=== PATIENT | male | born 1980 | race Caucasian/White ===

== ENCOUNTER 2018-03-31 07:31 | Emergency (ER) | payer BC, OTHER ==
[2018-03-31 07:55] VITALS: BP 126/83
--- NOTE | 2018-03-31 08:40 | UC ---
Arslan Santo Angela, scribed for Svetlana Olsen MD on 03/31/18 at 0833 . Abdominal Pain Male HPI - HPI Summary HPI Summary: This pt is a 37 y/o male presenting to [facility] c/o localized upper abd pain since last night. Pt additionally notes body aches, mostly on his abd, vomiting, intermittent fevers x4 days. The last time he had an episode of emesis was at 03 :00 today, notes not as violent as previous days. Emesis is described as clear and fluids he has been drinking. His maximum fever was 3 days ago and it was 101.8 F. Pt had some diarrhea 3 days ago, none since then. He describes his abd pain as a band around his abd and feeling bloated. Denies constipation. Yesterday he ate a sandwich and his daughter had the same food. His daughter is not sick. Denies sick contacts. He took Tylenol yesterday afternoon without relief. Pt states drinking alcohol once a day, 3-4 beers a day. He has not drank any alcohol since 5 days ago. Pt denies having any withdrawal symptoms when not drinking. Denies drug use. Allergies to cefaclor. Patients medication reviewed this visit. - History of Current Complaint Chief Complaint: UCAbdominalPain Stated Complaint: ABD PAIN Time Seen by Provider: 03/31/18 08:07 Hx Obtained From: Patient Onset/Duration: Lasting Days, Still Present Timing: Constant Severity Currently: Moderate Pain Intensity: 8 Pain Scale Used: 0-10 Numeric Location: Diffuse Radiates: No Character: Other - bloating Aggravating Factor(s): Nothing Alleviating Factor(s): Nothing Associated Signs And Symptoms: Positive: Fever, Nausea, Vomiting, Diarrhea. Negative: Constipation - Allergies/Home Medications Allergies/Adverse Reactions: Allergies Allergy/AdvReac Type Severity Reaction Status Date / Time cefaclor [From [facility]] Allergy Rash Verified 03/31/18 07:51 PMH/Surg Hx/FS Hx/Imm Hx Previously Healthy: Yes Other Cardiovascular History: DENIES: HTN Other Respiratory History: sleep apnea - Surgical History Surgical History: Yes Surgery Procedure, Year, and Place: hernia repair. sleep apnea - Family History Known Family History: Positive: Hypertension Family History: Mother: appendicitis - Social History Occupation: Employed Full-time Lives: With Family Alcohol Use: Daily Alcohol Amount: 3-4 beers Substance Use Type: None Smoking Status (MU): Never Smoked Tobacco Review of Systems Constitutional: Fever Skin: Negative Eyes: Negative ENT: Negative Respiratory: Negative Cardiovascular: Negative Gastrointestinal: Abdominal Pain, Vomiting, Diarrhea, Nausea, Other - NEG: constipation Genitourinary: Negative Motor: Negative Neurovascular: Negative Musculoskeletal: Negative Neurological: Negative Psychological: Negative All Other Systems Reviewed And Are Negative: Yes Physical Exam Triage Information Reviewed: Yes Appearance: Well-Nourished, Pain Distress Vital Signs: Initial Vital Signs Temp 98.1 F 03/31/18 07:52 Pulse 85 03/31/18 07:52 Resp 16 03/31/18 07:52 BP 126/83 03/31/18 07:52 Pulse Ox 99 03/31/18 07:52 Vital Signs Reviewed: Yes Eye Exam: Normal Eyes: Positive: Conjunctiva Clear ENT Exam: Normal ENT: Positive: Normal ENT inspection, Hearing grossly normal, Pharynx normal, TMs normal Dental Exam: Normal Neck exam: Normal Neck: Positive: Supple, Nontender, No Lymphadenopathy Respiratory Exam: Normal Respiratory: Positive: Chest non-tender, Lungs clear, Normal breath sounds, No respiratory distress, No accessory muscle use Cardiovascular Exam: Normal Cardiovascular: Positive: RRR, No Murmur, Pulses Normal Abdomen Description: Negative: Nontender - diffusely tender, epigastric, LLQ decreased BS soft + BS, CVA Tenderness (R), CVA Tenderness (L) Musculoskeletal Exam: Normal Musculoskeletal: Positive: Strength Intact Neurological Exam: Normal Neurological: Positive: Alert Psychological Exam: Normal Psychological: Positive: Normal Response To Family Skin Exam: Normal Abd Pain Male Course/Dx - Course Course Of Treatment: Pt with progressive abd pain, nausea and intermittent fever x 5 days. pt with diffuse abd pain,d ecrease BS. recommend pt to ED for further eval. pt with h/o ETOH - consider pancreatitis, diverticulitie, colitis , gastritis in differential. pt in agreement with plan. to drive. discharge with referral to ED. RN to call report - Differential Dx/Clinical Impression Provider Diagnoses: acute abdominal pain Discharge - Sign-Out/Discharge Documenting (check all that apply): Discharge/Admit/Transfer - Discharge - Discharge Plan Condition: Stable Disposition: HOME Referrals: No Primary Care Phys,NOPCP [Primary Care Provider] - Additional Instructions: The doctor that evaluated you today recommends you go directly to the emergency department for further evaluation. This may include lab testing, radiology imaging and IV treatment. This will be at the discretion of the provider that evaluates you. If your symptoms change or you have any concerns enroute, it is recommended you sample puller and call 911 for assistance Go directly to the emergency department at [facility] - they are expecting you - Billing Disposition and Condition Condition: STABLE Disposition: HOME The documentation as recorded by the Arslan abdullahi Angela accurately reflects the service I personally performed and the decisions made by Raúl mackenzie Laura, MD.
== END 2018-03-31 08:45 | disposition home or self-care (01) ==
LOC: UCEAST 07:31
DX: R10.10 Upper abdominal pain, unspecified (principal); M79.1 Myalgia; R11.2 Nausea with vomiting, unspecified; R50.9 Fever, unspecified; R19.7 Diarrhea, unspecified; Z88.1 Allergy status to other antibiotic agents
CPT/HCPCS: 99202; G0463

== ENCOUNTER 2018-03-31 09:05 | Emergency (ER) | payer BC ==
[2018-03-31] MEDS ORDERED: Ondansetron INJ* 2 MG/ML VIAL IV ONE (09:35)
[2018-03-31 09:58] LABS: ABS Basophils 0 10^3/ul (0-0.2); ABS Eosinophils 0.1 10^3/ul (0-0.6); ABS Monocytes 0.7 10^3/ul (0-0.8); ABS Neutrophils 5.1 10^3/ul (1.5-7.7); ABS Nucleated RBC 0 10^3/ul; Eosinophil % 0.9 % (0-6); Hematocrit 45 % (42-52); Hemoglobin 15.7 g/dl (14.0-18.0); Mean Corpuscular HGB Conc 35 g/dl (31-36); Mean Corpuscular Hemoglobin 31 pg (27-31); Mean Corpuscular Volume 88 fL (80-94); Mean Platelet Volume 7.6 um3 (7.4-10.4); Nucleated Red Blood Cells % 0.6; Platelet Count 263 10^3/ul (150-450); Red Blood Count 5.11 10^6/ul (4.0-5.4); Red Cell Distribution Width 13 % (10.5-15); White Blood Count 6.9 10^3/ul (3.5-10.8)
[2018-03-31 10:03] LABS: INR 0.97 (0.77-1.02)
[2018-03-31 10:10] LABS: EGFR Non-African American 83.6 (>60)
[2018-03-31] MEDS ORDERED: Iohexol 300* (CONTRAST) 10 ML SDV IV ONE (10:13)
--- NOTE | 2018-03-31 10:43 | ED ---
Abdominal Pain/Male - HPI Summary HPI Summary: This patient is an otherwise healthy 37-year-old male presenting to the ED from [facility] with a chief complaint of mid abdominal pain which has been present mostly since last evening. Endorses vomiting, but denies nausea. He has also had intermittent fevers and several days with the highest reported at 101.8. Denies any nausea, but states will vomit out of pain. Pain improves after vomiting. Last emesis at 3 AM today. Since 5 days ago he endorses pain to his right and left upper quadrants which she describes as a band around his abdomen. Since last evening the pain has shifted to the mid abdomen and he states now it is more diffuse. His is at bedside and states he has been more lethargic recently and having little energy. Endorses sweats and chills. He endorses early satiety and has not been eating or drinking regularly. Endorses a bloated feeling. Alcohol use daily, but has not drink any alcohol since symptoms began 5 days ago. Denies smoking or drug use. Denies any known sick contacts. He has never had anything like this before. Symptoms are not aggravated or alleviated with food or positioning. Denies any BRBPR. - History of Current Complaint Chief Complaint: EDAbdPain Stated Complaint: ABD PAIN Time Seen by Provider: 03/31/18 09:15 Hx Obtained From: Patient Onset/Duration: Sudden Onset Timing: Constant Severity Initially: Moderate Severity Currently: Moderate Pain Intensity: 8 Pain Scale Used: 0-10 Numeric Location: Diffuse Radiates: No Character: Sharp, Cramping Aggravating Factor(s): Nothing Alleviating Factor(s): Nothing Associated Signs And Symptoms: Positive: Diaphoresis, Fever, Decreased Appetite , Vomiting, Diarrhea - 1 episode. Negative: Cough, Chest Pain, Dizzy, Back Pain , Constipation, Blood in Stool, Urinary Symptoms, Nausea, Penile Discharge - Risk Factors Testicular Torsion: Negative Cardiac Risk Factors: Negative - Allergies/Home Medications Allergies/Adverse Reactions: Allergies Allergy/AdvReac Type Severity Reaction Status Date / Time cefaclor [From [facility]] Allergy Rash Verified 03/31/18 07:51 Home Medications: Home Medications Multivitamins/Minerals TAB* [Theragran/minerals TAB*] 1 tab PO DAILY 03/31/18 [ History Confirmed 03/31/18] PMH/Surg Hx/FS Hx/Imm Hx Previously Healthy: Yes Endocrine/Hematology History: Denies: Hx Diabetes, Hx Thyroid Disease Cardiovascular History: Denies: Hx Hypertension Respiratory History: Denies: Hx Asthma, Hx Chronic Obstructive Pulmonary Disease (COPD) GI History: Denies: Hx Ulcer - Surgical History Surgery Procedure, Year, and Place: hernia repair. sleep apnea - Immunization History Hx Pertussis Vaccination: No Immunizations Up to Date: Unable to Obtain/Confirm Infectious Disease History: No Infectious Disease History: Denies: Hx Hepatitis, Hx Human Immunodeficiency Virus (HIV), Traveled Outside the [place] in Last 30 Days - Family History Family History: Mother: appendicitis - Social History Occupation: Unemployed Lives: With Family Alcohol Use: Daily Alcohol Amount: 3-4 beers Hx Substance Use: No Substance Use Type: Reports: None Hx Tobacco Use: No Smoking Status (MU): Never Smoked Tobacco Review of Systems Positive: Fever, Chills, Fatigue, Skin Diaphoresis Negative: Photophobia, Blurred Vision Negative: Dental Pain, Sore Throat, Ear Ache, Nasal Discharge Negative: Palpitations, Chest Pain Negative: Shortness Of Breath, Cough Positive: Abdominal Pain, Vomiting, Diarrhea Genitourinary: Negative Positive: no symptoms reported, see HPI. Negative: burning, dysuria, discharge , frequency, flank pain, urgency Positive: Arthralgia - bilateral lower extremities Skin: Negative Neurological: Negative All Other Systems Reviewed And Are Negative: Yes Physical Exam Triage Information Reviewed: Yes Vital Signs On Initial Exam: Initial Vitals Temp Pulse Resp BP Pulse Ox 97.3 F 79 16 154/71 100 03/31/18 09:08 03/31/18 09:08 03/31/18 09:08 03/31/18 09:08 03/31/18 09:08 Appearance: Positive: Well-Appearing, Well-Nourished Skin: Positive: Warm, Skin Color Reflects Adequate Perfusion Head/Face: Positive: Normal Head/Face Inspection Eyes: Positive: EOMI, ANN-MARIE, Conjunctiva Clear Neck: Positive: Supple, No Lymphadenopathy Respiratory/Lung Sounds: Positive: Clear to Auscultation, Breath Sounds Present Cardiovascular: Positive: RRR, Pulses are Symmetrical in both Upper and Lower Extremities Abdomen Description: Positive: Other: - tenderness to all quadrants on light palpation; hypoactive bowel sounds Musculoskeletal: Positive: Normal, Strength/ROM Intact Neurological: Positive: Sensory/Motor Intact, Speech Normal Psychiatric: Positive: Affect/Mood Appropriate AVPU Assessment: Alert Diagnostics - Vital Signs Vital Signs Temp Pulse Resp BP Pulse Ox 03/31/18 09:08 97.3 F 79 16 154/71 100 - Laboratory Lab Results: Lab Results 03/31/18 03/31/18 03/31/18 Range/Units 09:44 09:44 09:44 WBC 6.9 (3.5-10.8) 10^3/ul RBC 5.11 (4.0-5.4) 10^6/ul Hgb 15.7 (14.0-18.0) g/dl Hct 45 (42-52) % MCV 88 (80-94) fL MCH 31 (27-31) pg MCHC 35 (31-36) g/dl RDW 13 (10.5-15) % Plt Count 263 (150-450) 10^3/ul MPV 7.6 (7.4-10.4) um3 Neut % (Auto) 73.1 (38-83) % Lymph % (Auto) 15.0 L (25-47) % Lagrange % (Auto) 10.5 H (0-7) % Eos % (Auto) 0.9 (0-6) % Baso % (Auto) 0.5 (0-2) % Absolute Neuts (auto) 5.1 (1.5-7.7) 10^3/ul Absolute Lymphs (auto) 1.0 (1.0-4.8) 10^3/ul Absolute Monos (auto) 0.7 (0-0.8) 10^3/ul Absolute Eos (auto) 0.1 (0-0.6) 10^3/ul Absolute Basos (auto) 0 (0-0.2) 10^3/ul Absolute Nucleated RBC 0 10^3/ul Nucleated RBC % 0.6 INR (Anticoag Therapy) (0.77-1.02) Sodium 139 (139-145) mmol/L Potassium 3.9 (3.5-5.0) mmol/L Chloride 104 (101-111) mmol/L Carbon Dioxide 27 (22-32) mmol/L Anion Gap 8 (2-11) mmol/L BUN 13 (6-24) mg/dL Creatinine 1.00 (0.67-1.17) mg/dL Est GFR ( Amer) 107.5 (>60) Est GFR (Non-Af Amer) 83.6 (>60) BUN/Creatinine Ratio 13.0 (8-20) Glucose 114 H (70-100) mg/dL Lactic Acid 1.0 (0.5-2.0) mmol/L Calcium 9.2 (8.6-10.3) mg/dL Magnesium 1.9 (1.9-2.7) mg/dL Total Bilirubin 0.60 (0.2-1.0) mg/dL AST 23 (13-39) U/L ALT 45 (7-52) U/L Alkaline Phosphatase 54 (34-104) U/L C-Reactive Protein 23.79 H (< 5.00) mg/L Total Protein 7.0 (6.4-8.9) g/dL Albumin 3.9 (3.2-5.2) g/dL Globulin 3.1 (2-4) g/dL Albumin/Globulin Ratio 1.3 (1-3) Lipase < 10 L (11.0-82.0) U/L 03/31/18 Range/Units 09:44 WBC (3.5-10.8) 10^3/ul RBC (4.0-5.4) 10^6/ul Hgb (14.0-18.0) g/dl Hct (42-52) % MCV (80-94) fL MCH (27-31) pg MCHC (31-36) g/dl RDW (10.5-15) % Plt Count (150-450) 10^3/ul MPV (7.4-10.4) um3 Neut % (Auto) (38-83) % Lymph % (Auto) (25-47) % Lagrange % (Auto) (0-7) % Eos % (Auto) (0-6) % Baso % (Auto) (0-2) % Absolute Neuts (auto) (1.5-7.7) 10^3/ul Absolute Lymphs (auto) (1.0-4.8) 10^3/ul Absolute Monos (auto) (0-0.8) 10^3/ul Absolute Eos (auto) (0-0.6) 10^3/ul Absolute Basos (auto) (0-0.2) 10^3/ul Absolute Nucleated RBC 10^3/ul Nucleated RBC % INR (Anticoag Therapy) 0.97 (0.77-1.02) Sodium (139-145) mmol/L Potassium (3.5-5.0) mmol/L Chloride (101-111) mmol/L Carbon Dioxide (22-32) mmol/L Anion Gap (2-11) mmol/L BUN (6-24) mg/dL Creatinine (0.67-1.17) mg/dL Est GFR ( Amer) (>60) Est GFR (Non-Af Amer) (>60) BUN/Creatinine Ratio (8-20) Glucose (70-100) mg/dL Lactic Acid (0.5-2.0) mmol/L Calcium (8.6-10.3) mg/dL Magnesium (1.9-2.7) mg/dL Total Bilirubin (0.2-1.0) mg/dL AST (13-39) U/L ALT (7-52) U/L Alkaline Phosphatase (34-104) U/L C-Reactive Protein (< 5.00) mg/L Total Protein (6.4-8.9) g/dL Albumin (3.2-5.2) g/dL Globulin (2-4) g/dL Albumin/Globulin Ratio (1-3) Lipase (11.0-82.0) U/L Result Diagrams: 03/31/18 09:44 03/31/18 09:44 Lab Statement: Any lab studies that have been ordered have been reviewed, and results considered in the medical decision making process. Abdominal Pain Fem Course/Dx - Course Course Of Treatment: During the course of treatment, the patient's evaluated for diffuse abdominal pain with vomiting and 1 episode diarrhea 5 days. Denies any significant PMH. is at bedside. 1 L normal saline, 4 mg Zofran given on arrival into the ED. Labs obtained which are all unremarkable. CT abdomen and pelvis obtained which shows a moderate to high grade small bowel obstruction. Dr. Leos called in the OR. Spoke with CEMENTER HAND Adriana who suggests NG tube and agrees to come see patient and admit. Patient made aware. NG ordered. - Diagnoses Differential Diagnosis/HQI/PQRI: Bowel Obstruction, Constipation Provider Diagnoses: Bowel obstruction - Provider Notifications Time Discussed With Above Provider: 12:00 Discharge - Sign-Out/Discharge Documenting (check all that apply): Discharge/Admit/Transfer - Discharge Plan Condition: Fair Disposition: ADMITTED TO [facility] Referrals: Mitesh Lunsford MD [Primary Care Provider] - - Billing Disposition and Condition Condition: FAIR Disposition: [facility]
--- NOTE | 2018-03-31 11:40 | RAD ---
INDICATION: Abdominal pain. Nausea. Vomiting. COMPARISON: None TECHNIQUE: Axial source images were obtained from the hemidiaphragms to the symphysis pubis following administration of oral and intravenous contrast. 150 mL Omnipaque 300 was utilized. Coronal and sagittal reconstructed images were acquired. Lung bases: The lung bases are clear. Liver: The liver is normal in size. There are no masses. There is no ductal dilatation. Gallbladder: There are no calcified gallstones. There is no evidence of wall thickening or pericholecystic fluid. Spleen: The spleen is normal in size. There are no masses. Pancreas: There is no focal pancreatic mass or ductal dilatation. Adrenal glands: There is no evidence of adrenal mass. Kidneys: The kidneys are normal in size and position. There are prompt nephrograms and there is prompt excretion bilaterally. There are no renal parenchymal masses. There is no evidence of nephrolithiasis. Adenopathy: There is no evidence of adenopathy by size criteria. Fluid collections: There is a small amount of free fluid in the dependent portion of the pelvis. Vessels:There are no significant atherosclerotic changes involving the aorta. There is no focal aneurysm. The iliac vessels are normal in caliber. The IVC appears normal. GI tract: The small bowel is mildly distended with contrast. There are multiple, distended, fluid-filled loops of jejunum and proximal ileum. The small bowel measures up to 4.5 cm. There is no pneumatosis. There is no free intraperitoneal air The colon is decompressed. There are scant diverticula. The findings compatible with a moderate to high-grade small bowel obstruction. Pelvic organs: The prostate and seminal vesicles appear normal Bladder: There are no bladder masses. Abdominal and pelvic soft tissues: The extraperitoneal abdominal and pelvic soft tissues appear normal.. Osseous structures: There are no acute osseous findings. Other: None IMPRESSION: MODERATE TO HIGH-GRADE SMALL BOWEL OBSTRUCTION. THE CAUSE OF THE OBSTRUCTION IS NOT DETERMINED ON THE CT
[2018-03-31] MEDS ORDERED: D5LR 1000 ML BAG* 1,000 ML IV SCH (12:00)
[2018-03-31] MEDS ORDERED: Ondansetron 40 MG VIAL* 2 MG/ML 20 ML VIAL IV PRN (12:35)
[2018-03-31] MEDS ORDERED: HYDROmorphone INJ* 2 MG/ML CARPUJECT SYRINGE IV PRN (12:35)
[2018-03-31] MEDS ORDERED: Heparin VIAL(*) 5000 UNITS/ML VIAL (FIVE THOUSAND) SUBCUT SCH (14:00)
[2018-03-31 14:11] LABS: Urine Appearance Cloudy; Urine Blood Negative (Negative); Urine Color Yellow; Urine Ketones Negative (Negative); Urine Protein Negative (Negative); Urine Specific Gravity 1.024 (1.010-1.030); Urine Urobilinogen Negative (Negative)
--- NOTE | 2018-03-31 14:31 | HP ---
AMENDED REPORT NOW INCLUDES COSIGNER DESIGNATION - ESIGNED BEFORE ADJUSTMENTS CC: Dr. Mitesh Lunsford * ADMISSION HISTORY AND PHYSICAL: DATE OF ADMISSION: 03/31/18 NOTE: This patient was seen in the [facility] Emergency Department on , 03/31/18. This patient was sent from the [facility] in [place] to the emergency department. ATTENDING SURGEON: Dr. Drew Leos.* (DICTATED BY FREDERIC VALADEZ, ARNIE) CHIEF COMPLAINT: Persistent abdominal pain. HISTORY OF PRESENT ILLNESS: The patient is a generally healthy 37-year-old male who had the onset of abdominal pain on Wednesday evening, 03/27/18; he had not eaten any unusual foods and did not have any sick contacts; he vomited several times on Wednesday evening; on Wednesday, his temperature was 101.8 at home and he had a diarrhea stool; he felt very tired and described his abdomen is sore. On Wednesday and Wednesday, he continued to have poor appetite. He felt achy. 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 He went to the [facility] today with worsening generalized abdominal pain and he vomited at 3 o'clock this morning. He states that his stools are small and loose. He reports that his pain can be as high as 8/10 and that it is crampy and it comes and goes. He has not noticed any blood per rectum; he has noticed that his urine has been darker than usual but he denies any dysuria; he continues to pass a small amount of flatus. He has never had a similar episode. He has had laparoscopic right inguinal hernia repair in 2009. White blood cell count in the emergency department was 6.9, electrolytes were within normal limits. CRP was elevated at 23.79; CAT scan of the abdomen and pelvis revealed a moderate to high grade small-bowel obstruction with distended fluid filled loops of jejunum and proximal ileum. No free air. PAST MEDICAL HISTORY: Generally healthy and his primary care provider his Dr. Lunsford. PAST SURGICAL HISTORY: Open right inguinal hernia repair at age 17 and laparoscopic right inguinal hernia repair in 2009 at [facility]; he has also undergone surgery for sleep apnea in his 20s. MEDICATIONS: Multivitamins. ALLERGIES: CECLOR causes rash. FAMILY HISTORY: Mother had appendicitis. 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 His significant other, Elida, accompanies him today. REVIEW OF SYSTEMS: Constitutional: Reports fevers, chills, diaphoresis, and fatigue. Endocrine: No diabetes or thyroid disease. Respiratory: No dyspnea on exertion. No chronic cough. Cardiovascular: No anginal chest pain, no palpitations. Gastrointestinal: As described in history of present illness. He also reports early satiety and denies acid reflux. Genitourinary: No dysuria, but has noticed dark urine. Musculoskeletal: Has felt achy in the lower extremities. General: No previous anesthesia complications. No history of deep vein thrombosis or pulmonary embolism. No bleeding tendencies. PHYSICAL EXAMINATION GENERAL SURVEY: The patient is a 37-year-old male, obese, well developed, complaining of lower abdominal pain. VITAL SIGNS: Height 6 feet, weight 276 pounds. Body mass index 37. Blood pressure 154/70, pulse 79 and regular, respiratory rate 16, O2 saturation 100%, temperature 97.3 tympanic. HEENT: Benign. NECK: Supple with no cervical lymphadenopathy. LUNGS: Breath sounds bilaterally clear and equal. HEART: Regular rate and rhythm. No murmurs or rubs appreciated. ABDOMEN: Obese, quiet, tender throughout. No guarding or rebound tenderness. No obvious masses or organomegaly, but exam is limited by body habitus. Well healed surgical scars in the midline from trocars from previous laparoscopic right inguinal hernia repair and there is also a well healed scar in the right inguinal region from the open repair. EXTREMITIES: Warm without edema or skin ulceration. Calves are nontender. GENITALIA AND RECTAL: Deferred. NEUROLOGIC: Alert and oriented x3. SKIN: Warm, dry, intact. There is erythema across the lower abdomen in the area of the pannus, but no rash or skin breakdown. IMPRESSION: Small-bowel obstruction. PLAN: N.p.o., nasogastric decompression, IV fluid resuscitation, pain management, and antiemetics as needed. Dr. Leos was updated and has reviewed the CAT scan of the abdomen and pelvis. Further planing will be with Dr. Leos. TIME SPENT: Sixty minutes with greater than 50% in [id number] history taking and coordination of care. FREDERIC VALADEZ, CRATE OPENER [id number]/[facility] #: [id number] [place]
[2018-03-31] MEDS: D5LR 1000 ML BAG* 1,000 ML IV SCH (16:00)
--- NOTE | 2018-03-31 16:25 | PN ---
Progress Note - Progress Note Date of Service: 03/31/18 Note: SBO Pt seen and examined. H&P and CT and labs reviewed. He thinks the pain is decreasing, No N/V. Abd obese, soft mildly tender, no peritonitis or guarding. Will cont non-operative approach. Re-assess in AM Agree with H&P
[2018-04-01] MEDS: D5LR 1000 ML BAG* 1,000 ML IV SCH (00:07)
[2018-04-01 06:18] LABS: ABS Basophils 0 10^3/ul (0-0.2); ABS Eosinophils 0.2 10^3/ul (0-0.6); ABS Lymphocytes 1.4 10^3/ul (1.0-4.8); ABS Monocytes 0.5 10^3/ul (0-0.8); ABS Neutrophils 2.7 10^3/ul (1.5-7.7); ABS Nucleated RBC 0 10^3/ul; Eosinophil % 4.7 % (0-6); Hematocrit 41 % (42-52); Hemoglobin 14.2 g/dl (14.0-18.0); Lymphocyte % 28.1 % (25-47); Mean Corpuscular HGB Conc 35 g/dl (31-36); Mean Corpuscular Hemoglobin 31 pg (27-31); Mean Corpuscular Volume 88 fL (80-94); Mean Platelet Volume 7.5 um3 (7.4-10.4); Nucleated Red Blood Cells % 0; Platelet Count 246 10^3/ul (150-450); Red Blood Count 4.64 10^6/ul (4.0-5.4); Red Cell Distribution Width 13 % (10.5-15); White Blood Count 4.9 10^3/ul (3.5-10.8)
[2018-04-01 06:36] LABS: EGFR Non-African American 92.1 (>60)
--- NOTE | 2018-04-01 09:08 | RAD ---
Indication: Small bowel obstruction follow-up Comparison: March 31, 2018 CT Technique: Supine and upright views of the abdomen. Report: No radiographic evidence for free air. Significant interval improvement in extent of small bowel dilatation compared with the CT of one day prior. Distal propagation of enteric contrast to the rectum. Negative for colonic bowel dilatation. Moderate stool in the colon without significant rectal distension. Surgical clips at the RIGHT groin favoring previous hernia repair. No suspicious calcifications evident. Unremarkable soft tissue contours. IMPRESSION: Significant interval partial resolution of small bowel obstruction.
--- NOTE | 2018-04-01 10:37 | PN ---
Progress Note - Progress Note Date of Service: 04/01/18 Note: HD#2 SBO T99, VS noted UO large. Passed small flatus Pain almost gone, no N/V, a little hungry Abd--obese soft, minimally tender throughout, no peritonitis AXR--greatly improved Impr: Resolving SBO Heplock IV Start clears Reassess later today.
[2018-04-01 13:11] VITALS: BP 131/69
--- NOTE | 2018-04-02 06:37 | DS ---
CC: Mitesh Lunsford MD * DISCHARGE SUMMARY: DATE OF ADMISSION: 03/31/18 DATE OF DISCHARGE: 04/01/18 ATTENDING SURGEON: Drew Leos MD * (DICTATED BY FREDERIC VALADEZ NP) HOSPITAL COURSE: Please refer to admission history and physical for details, but the patient presented with persistent abdominal pain, vomiting and loose stools. A CAT scan of the abdomen and pelvis on 03/31/18 revealed a moderate-to -high grade small bowel obstruction with distended fluid filled loops of jejunum and proximal ileum. There was no free air seen. The patient was admitted for IV fluid resuscitation. He was kept n.p.o. He had no further episodes of vomiting and did not require nasogastric decompression. Today, his abdominal x-ray is greatly improved with significant interval partial resolution of the small bowel obstruction. He is passing flatus and also passed a formed stool; he denies any abdominal pain, nausea or vomiting. He is tolerating a clear liquid diet. PHYSICAL EXAMINATION: General: Well appearing in no acute distress. He is up and walking and showering. Vital signs are stable. He is afebrile. O2 saturation on room air was 98%. Lungs: Breath sounds bilaterally clear and equal. Heart: Regular rate and rhythm. No murmurs or rubs appreciated. Abdomen: Active bowel sounds. Soft, nontender throughout. No guarding or other signs of peritonitis. Extremities are warm without edema. Calves are nontender. IMPRESSION: Interval resolution of small bowel obstruction. PLAN: Discharge home today. Dietary instructions were reviewed with the patient. He will call to set up a followup visit with Dr. Lunsford who is his primary care provider. An out of work note was provided for the next 3 days. I did not prescribe any new medications and he may use Tylenol for any discomfort. He knows he could call [facility] for further advice, but he does not need to make an appointment at this time. FREDERIC VALADEZ NP [id number]/[facility] #: [id number] MTDD
== END 2018-04-01 15:45 | disposition home or self-care (01) ==
LOC: ED 09:05 → SSU 12:35
PROVIDERS: ADMIT Surgery; ATTEND Surgery
DX: K56.609 Unspecified intestinal obstruction, unspecified as to partial versus complete obstruction (principal); R10.9 Unspecified abdominal pain; Z88.1 Allergy status to other antibiotic agents
CPT/HCPCS: 36415; 74019; 74177; 80048; 80053; 81003; 83605; 83690; 83735; 85025; 85610; 86140; 96361; 96374; 99283; G0378; J2405; Q9967